=== PATIENT | male | born 1975 | race Caucasian/White ===

== ENCOUNTER → 2019-07-09 | Outpatient (CLI) | payer OTHER ==
--- NOTE | 2019-07-09 11:40 | MR ---
EXAMINATION TYPE: MR brain wo/w con DATE OF EXAM: 07/09/2019 COMPARISON: None HISTORY: Visual disturbances CONTRAST: Performed utilizing 9.5 mL intravenous Gadavist gadolinium contrast. TECHNIQUE: Multiplanar, multiecho imaging on a 3.0 Marleni magnet is performed through the brain. Stud y is performed within 24 hours of arrival to the hospital. The craniovertebral junction is normal. The pituitary is normal. Diffusion-weighted imaging is performed. No abnormal hyperintensity is present to suggest an acute i ntracranial infarct or acute ischemic change. No suspicious signal changes evident. Ventricles and sulci are appropriate for the patient age. Temporal lobes appear symmetrical. No abnormal enhancement is evident. IMPRESSIONS: 1. Normal pre and postcontrast MRI brain.
== END | disposition home or self-care (01) ==
LOC: RADMRIMAIN 09:45
DX: H53.8 Other visual disturbances (principal)
CPT/HCPCS: 70553; A9585